=== PATIENT | female | born 1975 | race Caucasian/White ===

== ENCOUNTER 2018-02-26 12:42 | Emergency (ER) | END 2018-02-26 14:50 | disposition home or self-care (01) ==

== ENCOUNTER 2019-01-12 11:04 | Emergency (ER) | payer MEDICAID ==
[~2019-01-12] VITALS: Ht 157.5 cm; Wt 61.1 kg
[~2019-01-12 11:04] MED LIST: ACET500C5 PO; AMOX1TAB10 PO; AZIT250T PO; CETI10CA PO; FLUT16SP17 NASAL; GUAI5SYR2 PO; IBUP-1542 PO; NAPR-985 PO
[2019-01-12 11:06] VITALS: BP 123/58; PULSE 77; RESP 18; Ht 157.5 cm; Wt 61.1 kg
[2019-01-12] MEDS ORDERED: ACET-141 PO (11:24)
[2019-01-12] MEDS ORDERED: ALBU18HF INHALATION (11:24)
[2019-01-12] MEDS ORDERED: D-ME118S24 PO (11:24)
[2019-01-12] MEDS ORDERED: IBUP-1542 PO (11:24)
--- NOTE | 2019-01-12 11:27 | ERD ---
ER Documentation Chief Complaint Chief Complaint COUGH , ST X 2 WEEKS , SWELLING OF EYES X 2 DAYS HPI 43-year-old female presents for cough and sore throat times 2 weeks. Patient also states that she has had some bilateral eyelid swelling for 2 days. Denies any pain. She also has left ear pain. She took Advil and NyQuil without relief. The cough is noted to be dry. Denies nausea or vomiting. ROS All systems reviewed and are negative except as per history of present illness. Medications Home Meds Active Scripts Diphenhydramine Hcl* (Diphenhydramine Hcl*) 25 Mg Capsule, 25 MG PO Q6 PRN for allergy, #30 CAP Prov:ANDRESSA TORRES DO 01/12/19 Acetaminophen* (Acetaminophen*) 500 MG Extra Strength Tablet, 500 MG PO Q4H PRN for PAIN AND OR ELEVATED TEMP, #30 TAB Prov:ANDRESSA TORRES DO 01/12/19 Ibuprofen* (Motrin*) 600 Mg Tab, 600 MG PO Q6H PRN for PAIN AND OR ELEVATED TEMP, #30 TAB Prov:ANDRESSA TORRES DO 01/12/19 D-Methorphan Hb/P-Epd HCl/Bpm (Kqdafmkmyy-Etsergrczwo-Vz Syr) 118 Ml Syrup, 5 ML PO Q4H PRN for COUGH for 7 Days, #1 BOTTLE Prov:ANDRESSA TORRES DO 01/12/19 Albuterol Sulfate* (Ventolin HFA*) 18 Gm Hfa.aer.ad, 2 PUFF INHALATION Q4H PRN for cough/shortness of breath, #1 INHALER Prov:ANDRESSA TORRES DO 01/12/19 Guaifenesin-Dextromethorphan* (Robitussin* DM) 100MG/10MG/5ML Syrup, 10 ML PO Q6H PRN for COUGH for 5 Days, ML Prov:ALTON CLEMENTEC 02/26/18 Cetirizine Hcl* (Zyrtec*) 10 Mg Capsule, 10 MG PO DAILY, #14 TAB.CHEW Prov:ALTON CLEMENTEC 02/26/18 Acetaminophen* (Tylophen*) 500 Mg Capsule, 1 CAP PO Q6H PRN for PAIN AND OR ELEVATED TEMP, #30 CAP Prov:ALTON CLEMENTEC 02/26/18 Naproxen* (Naprosyn*) 500 Mg Tablet, 500 MG PO BID PRN for PAIN AND/OR INFLAMMATION, #30 TAB Prov:ALTON CLEMENTE PA-C 02/26/18 Naproxen* (Naprosyn*) 500 Mg Tablet, 500 MG PO BID PRN for PAIN AND/OR INFLAMMATION, #30 TAB Prov:FRANK HIGGINBOTHAM PA-C 10/18/16 Amoxicillin/Potassium Clav (Amox-Clav 875-125 mg Tablet) 875-125 mg Tab, 1 TAB PO BID for 10 Days, #20 TAB Prov:FRANK HIGGINBOTHAM PA-C 10/18/16 Azithromycin* (Zithromax*) 250 Mg Tablet, 250 MG PO .KaylaPACK DIRECTED, #6 TAB TAKE 500 MG (2 TABS) THE FIRST DAY THEN 250 MG (1 TAB) DAYS 2-5 Prov:ALTON CLEMENTE PA-C 08/23/16 Acetaminophen* (Tylophen*) 500 Mg Capsule, 1 CAP PO Q6H PRN for PAIN AND OR ELEVATED TEMP, #30 CAP Prov:ALTON CLEMENTE PA-C 08/23/16 Ibuprofen* (Motrin*) 600 Mg Tab, 600 MG PO Q6, #30 TAB Prov:ALTON CLEMENTE PA-C 08/23/16 Guaifenesin-Dextromethorphan* (Robitussin* DM) 100MG/10MG/5ML Syrup, 10 ML PO Q4 H PRN for COUGH for 7 Days, ML Prov:ALTON CLEMENTE PA-C 08/23/16 Fluticasone Propionate* (Fluticasone Propionate* Nasal) 50 Mcg/[place] - 16 Gm [place].susp, 1 SPRAY NASAL DAILY, #1 BOTTLE TO EACH NOSTRIL Prov:ALTON CLEMENTE PA-C 08/23/16 Cetirizine Hcl* (Zyrtec*) 10 Mg Capsule, 10 MG PO DAILY, #14 TAB.CHEW Prov:ALTON CLEMENTE PA-C 08/23/16 Allergies Allergies: Coded Allergies: No Known Allergy (Verified , 09/18/14) PMhx/Soc Hx Alcohol Use: No Hx Substance Use: No Hx Tobacco Use: No Physical Exam Vitals Vital Signs Date Temp Pulse Resp B/P (MAP) Pulse Ox O2 O2 Flow FiO2 Time Delivery Rate 01/12/19 97.7 77 18 123/58 99 11:06 (79) Physical Exam Const: No acute distress Head: Atraumatic Eyes: Normal Conjunctiva ENT: Normal External Ears, bilateral tympanic membrane intact without erythema or bulging noted, nose and Mouth examination normal, no tonsillar swelling or exudate noted Neck: Full range of motion. No meningismus. Resp: Clear to auscultation bilaterally, no wheezing, rales, rhonchi Cardio: Regular rate and rhythm, no murmurs Skin: No petechiae or rashes Ext: No cyanosis, or edema Neur: Awake and alert Psych: Normal Mood and Affect Procedures/MDM Medical Decision Making: Differential diagnosis includes but not limited to upper respiratory infection, pneumonia, sepsis, meningitis. Patient appeared well on physical examination, nontoxic appearing. Lungs were clear to auscultation bilaterally. There is low suspicion for pneumonia, sepsis, meningitis. Patient likely has an upper respiratory infection, likely viral. Therefore antibiotics not indicated. Discussed symptomatic treatment with patient's parent who agrees with plan. There is no left tympanic membrane bulging or erythema noted despite patient's complaint of left ear pain. Likely related to URI. Patient given prescription for supportive medications. Patient advised to follow up with PCP in 1-2 days. Patient advised to return to ED for new or worsening symptoms. Patient stable on discharge from the ED. Disclaimer: Inadvertent spelling and grammatical errors are likely due to EHR/dictation software use and do not reflect on the overall quality of patient care. Also, please note that the electronic time recorded on this note does not necessarily reflect the actual time of the patient encounter. Departure Diagnosis: Primary Impression: URI (upper respiratory infection) URI type: unspecified URI Qualified Codes: J06.9 - Acute upper respiratory infection, unspecified Condition: Fair Patient Instructions: Preventing Common Respiratory Infections Referrals: COMMUNITY CLINICS YOU HAVE RECEIVED A MEDICAL SCREENING EXAM AND THE RESULTS INDICATE THAT YOU DO NOT HAVE A CONDITION THAT REQUIRES URGENT TREATMENT IN THE EMERGENCY DEPARTMENT. FURTHER EVALUATION AND TREATMENT OF YOUR CONDITION CAN WAIT UNTIL YOU ARE SEEN IN YOUR DOCTORS OFFICE WITHIN THE NEXT 1-2 DAYS. IT IS YOUR RESPONSIBILITY TO MAKE AN APPOINTMENT FOR FOLOW-UP CARE. IF YOU HAVE A PRIMARY DOCTOR --you should call your primary doctor and schedule an appointment IF YOU DO NOT HAVE A PRIMARY DOCTOR YOU CAN CALL OUR PHYSICIAN REFERRAL HOTLINE AT IF YOU CAN NOT AFFORD TO SEE A PHYSICIAN YOU CAN CHOSE FROM THE FOLLOWING [facility] [address] [facility] [address] [facility] [facility] [address] [facility] [address] [facility]. [facility] [address] [facility]. [facility] [address] Additional Instructions: Call your primary care doctor TOMORROW for an appointment during the next 1-2 days.See the doctor sooner or return here if your condition worsens before your appointment time. ANDRESSA TORRES DO Jan 12, 2019 11:27
[2019-01-12] MEDS ORDERED: DIPH25CA6 PO (11:28)
== END 2019-01-12 11:50 | disposition home or self-care (01) ==
LOC: FTE 11:04
DX: J06.9 Acute upper respiratory infection, unspecified (principal)
CPT/HCPCS: 99283